=== PATIENT | female | born 1985 ===

== ENCOUNTER 2022-04-17 14:01 | Inpatient (IN) | payer OTHER ==
[~2022-04-17] VITALS: Ht 162.6 cm; Wt 61.2 kg
== END 2022-04-23 17:11 | disposition home or self-care (01) | DRG 603 ==
LOC: ER 14:01 → MEDI 04-18 00:23
PROVIDERS: ADMIT Internal Medicine; ATTEND Internal Medicine
PROC: B345ZZZ Ultrasonography of Bilateral Common Carotid Arteries (ICD-10-PCS; principal; 2022-04-18)
PROC: BW38ZZZ Magnetic Resonance Imaging (MRI) of Head (ICD-10-PCS; 2022-04-18)
DX: L03.211 Cellulitis of face (principal); H60.12 Cellulitis of left external ear; L04.0 Acute lymphadenitis of face, head and neck; E87.6 Hypokalemia; Z20.822 Contact with and (suspected) exposure to COVID-19; D72.0 Genetic anomalies of leukocytes
CPT/HCPCS: 70544